=== PATIENT | female | born 1975 | race Caucasian/White ===

== ENCOUNTER 2017-08-23 09:56 | Emergency (ER) | payer OTHER ==
--- NOTE | 2017-08-23 10:11 | ERNOTE ---
ER Female HPI Date of Service: 08/23/17 Stated Complaint: BATHROOM ISSUES Presenting Symptoms: dysuria Time Seen by Provider: 08/23/17 10:12 Source: patient, RN notes reviewed Exam Limitations: no limitations Immunizations: IMMUNIZATION HX History of Influenza Vaccine Yes Allergies/Adverse Reactions: Allergies ciprofloxacin [From Cipro] Allergy (Verified 08/23/17 10:10) codeine Allergy (Verified 08/23/17 10:10) doxycycline Allergy (Verified 08/23/17 10:10) erythromycin base Allergy (Verified 08/23/17 10:10) levofloxacin [From Levaquin] Allergy (Verified 08/23/17 10:10) penicillin G Allergy (Verified 08/23/17 10:09) tetracycline Allergy (Verified 08/23/17 10:10) Home Medications: HOME MEDICATIONS Esomeprazole Magnesium [Nexium] 20 mg PO DAILY 08/23/17 [Last Taken Unknown] Fexofenadine HCl [Tammy Allergy] 180 mg PO DAILY 08/23/17 [Last Taken Unknown] Magnesium 200 mg PO DAILY 08/23/17 [Last Taken Unknown] Sulfamethoxazole/Trimethoprim [Bactrim Ds] 1 tab PO BID #14 tab 08/23/17 [Last Taken Unknown] acetaZOLAMIDE [Diamox Sequels] 500 mg PO BID 08/23/17 [Last Taken Unknown] - History of Present Illness Narrative: Angelica is a 41-year-old female who presents to the emergency department for urinary hesitancy and dysuria that began around 7:00 this morning. She also reports bladder spasms. She has taken Pyridium and ibuprofen without improvement. She reports only being able to urinate a small amount at a time. She denies any recent urinary tract infections. Her last period was last week and this has ended. Date (Duration): 08/23/17 Time (Timing): 07:00 Timing: Present: constant, getting worse Quality: Present: severe, cramping Onset Location: Present: suprapubic Radiation: Present: none Activities at Onset: Present: none Prior Abdominal Problems: Present: similar symptoms Prior Treatment: Absent: recently seen Review of Systems - Review of Systems Constitutional: Absent: recent illness, fever, chills EYE: Present: no symptoms reported ENT: Present: no symptoms reported Respiratory: Absent: shortness of breath, cough Cardiology: Absent: chest pain, palpitations Gastrointestinal/Abdominal: Present: nausea, abdominal pain. Absent: vomiting, diarrhea, constipation Genitourinary: Present: frequency, dysuria. Absent: hematuria Musculoskeletal: Absent: back pain, muscle pain Skin: Absent: rash, lesions Neurological: Absent: headache, dizziness/light-headedness Endocrine: Present: no symptoms reported Hematologic/Lymphatic: Present: no symptoms reported Psych: Present: no symptoms reported - Patient's Past Medical History Patient History - Medical: No pertinent hx Patient History - Cardiac/Respiratory: No pertinent hx Patient History - Cancer: No Hx of Cancer Patient History - Surgical Procedures: T & A Patient History - Other: None LMP (females 10-50): last week - Social History Living Situations: home Psych History: No pertinent hx Alcohol Use: none Drug Use: none - Immunizations History of Influenza Vaccine: Yes Physical Exam - Physical Exam General Appearance: Present: wd/wn, alert, other - patient appears mildly uncomfortable, well-dressed and groomed Head Exam: Present: normal inspection Neck: Present: normal inspection, nontender, supple Respiratory: Present: no respiratory distress, normal breath sounds, no accessory muscle use, lungs clear Cardiovascular/Chest: Present: regular rate, rhythm, no murmur Gastrointestinal/Abdominal: Present: normal bowel sounds, nondistended, soft, tenderness. Absent: guarding - suprapubic, mass, hernia Back Exam: Present: normal inspection, normal range of motion, no CVA tenderness Extremity Exam: Present: normal inspection, normal range of motion, no edema Neurological Exam: Present: alert, oriented, normal mood/affect Skin Exam: Present: normal color, warm/dry ED Progress - Results and Orders Patient's Lab Results:: I have reviewed the patient's lab results. - Vital Signs Patient's Vital Signs:: I have reviewed the patient's vital signs. Vital Signs: Vital Signs 08/23/17 10:03 Temperature 36.7 C Pulse Rate 88 Respiratory 12 Rate Blood Pressure 151/110 O2 Sat by Pulse 96 Oximetry - Progress/Reassessment Chief Complaint: Genitourinary Problem Progress:: Unchanged Departure Clinical Impression: Cystitis - Departure Disposition: Home Follow Up Needed Condition: Good Instructions: Urinary Tract Infection, Adult, [id number] Additional Instructions: OK to take pyridium 200 mg every 8 hours Push fluids Return if symptoms worsen or are not improving Finish all of your antibiotic Referrals: Oskar Ocampo, [Primary Care Provider] - Prescriptions: Sulfamethoxazole/Trimethoprim [Bactrim Ds] 1 tab PO BID #14 tab
[2017-08-23 10:40] LABS: Urine Appearance Cloudy; Urine Bilirubin Negative (NEGATIVE); Urine Blood 25 /ul (NEGATIVE); Urine Color Yellow; Urine Ketone Negative (NEGATIVE); Urine Nitrite Negative (NEGATIVE); Urine Protein Negative (NEGATIVE); Urine Specific Gravity 1.015 SP.GR. (1.005-1.010); Urine Urobilinogen Normal (NORMAL); Urine pH 7.5 pH (5.0-7.0)
[2017-08-23 10:43] LABS: Urine Bacteria 1+; Urine RBC 0-5 /hpf (0-5); Urine WBC 0-5 /hpf (0-5)
[2017-08-23 10:44] LABS: Urine Amorphous Sediment Many - 3+ (NONE-FEW)
[2017-08-23 10:50] VITALS: BP 143/90
[2017-08-23] MEDS ORDERED: SULFAMETHOXAZOLE/TRIMETHOPRIM 1 TAB TABLET PO ONE (11:09)
[2017-08-23] MEDS ORDERED: SULFAMETHOXAZOLE/TRIMETHOPRIM 1 TAB TABLET ONE (11:11)
== END 2017-08-23 11:17 | disposition home or self-care (01) ==
LOC: ER 09:56
DX: N30.90 Cystitis, unspecified without hematuria (principal)